=== PATIENT | female | born 1975 | race Caucasian/White ===

== ENCOUNTER 2016-10-03 11:56 | Emergency (ER) | payer MEDICAID ==
[~2016-10-03] VITALS: Ht 160 cm; Wt 101.0 kg
[~2016-10-03 11:56] MED LIST: CYCL-36 PO; GABA300C3 PO; METH10TA PO
[2016-10-03 11:59] VITALS: BP 144/82; PULSE 104; RESP 20; TEMP 97.9; O2SAT 99
--- NOTE | 2016-10-03 12:02 | PD ---
Physical Exam Time Seen by Provider: 12:00 Narrative Pt presents to the ED stating she detoxing from methadone 180mg daily.; last took it 3 days ago. Pt attempted mona jannet but was directed her due to dosage and being out of their scope. Pt has no other medical history. Pt is with nausea, vomiting, diarrhea; heart racing, decreased appetite. Data Data Last Documented VS Vital Signs Date Time Temp Pulse Resp B/P Pulse Ox O2 Delivery O2 Flow Rate FiO2 10/03/16 18:30 70 15 142/79 99 Room Air 10/03/16 11:59 97.9 Orders Complete Blood Count With Diff (10/03/16 12:02) Comprehensive Metabolic Panel (10/03/16 12:02) Thyroid Stimulating Hormone (10/03/16 12:02) Urinalysis - C+S If Indicated (10/03/16 12:02) Drug Screen, Random Urine (10/03/16 12:02) Electrocardiogram (10/03/16 12:02) Alcohol (Ethanol) (10/03/16 12:02) Lorazepam Inj (Ativan Inj) (10/03/16 16:15) Psych Screen (10/03/16 18:58) Labs Laboratory Tests Test 10/03/16 10/03/16 12:25 17:00 White Blood Count 7.3 TH/MM3 Red Blood Count 4.51 MIL/MM3 Hemoglobin 12.0 GM/DL Hematocrit 36.7 % Mean Corpuscular Volume 81.4 FL Mean Corpuscular Hemoglobin 26.6 PG Mean Corpuscular Hemoglobin 32.7 % Concent Red Cell Distribution Width 15.5 % Platelet Count 238 TH/MM3 Mean Platelet Volume 8.1 FL Neutrophils (%) (Auto) 76.3 % Lymphocytes (%) (Auto) 17.0 % Monocytes (%) (Auto) 4.3 % Eosinophils (%) (Auto) 2.1 % Basophils (%) (Auto) 0.3 % Neutrophils # (Auto) 5.5 TH/MM3 Lymphocytes # (Auto) 1.2 TH/MM3 Monocytes # (Auto) 0.3 TH/MM3 Eosinophils # (Auto) 0.2 TH/MM3 Basophils # (Auto) 0.0 TH/MM3 CBC Comment DIFF FINAL Differential Comment Sodium Level 136 MEQ/L Potassium Level 3.8 MEQ/L Chloride Level 102 MEQ/L Carbon Dioxide Level 27.4 MEQ/L Anion Gap 7 MEQ/L Blood Urea Nitrogen 8 MG/DL Creatinine 0.85 MG/DL Estimat Glomerular Filtration 73 ML/MIN Rate Random Glucose 101 MG/DL Calcium Level 8.8 MG/DL Total Bilirubin 0.2 MG/DL Aspartate Amino Transf 9 U/L (AST/SGOT) Alanine Aminotransferase 19 U/L (ALT/SGPT) Alkaline Phosphatase 87 U/L Total Protein 7.9 GM/DL Albumin 3.4 GM/DL Thyroid Stimulating Hormone 1.050 uIU/ML 3rd Gen Ethyl Alcohol Level LESS THAN 3 MG/DL Urine Color YELLOW Urine Turbidity CLEAR Urine pH 6.5 Urine Specific [place] 1.013 Urine Protein NEG mg/dL Urine Glucose (UA) NEG mg/dL Urine Ketones NEG mg/dL Urine Occult Blood NEG Urine Nitrite NEG Urine Bilirubin NEG Urine Urobilinogen LESS THAN 2.0 MG/DL Urine Leukocyte Esterase NEG Urine RBC LESS THAN 1 /hpf Urine Squamous Epithelial 1 /hpf Cells Urine Mucus FEW /lpf Microscopic Urinalysis Comment CULT NOT INDICATED Urine Opiates Screen NEG Urine Barbiturates Screen NEG Urine Amphetamines Screen NEG Urine Benzodiazepines Screen POS Urine Cocaine Screen NEG Urine Cannabinoids Screen NEG MDM Medical Record Reviewed: Yes Supervised Visit with JETT: No Narrative Course Work up initiated in triage. Condition: Stable Diane Grimaldo Oct 03, 2016 12:02
[2016-10-03 13:29] LABS: AUTOMATED NEUTROPHIL # 5.5 TH/MM3 (1.8-7.7); BASOPHIL % 0.3 % (0.0-2.0); EOSINOPHIL # 0.2 TH/MM3 (0-0.4); EOSINOPHIL % 2.1 % (0.0-4.0); HEMATOCRIT 36.7 % (35.0-46.0); HEMO FLAGS DIFF FINAL; LYMPHOCYTE # 1.2 TH/MM3 (1.0-4.8); MEAN CELL VOLUME 81.4 FL (80.0-100.0); MEAN CORPUSCULAR HEMOGLOBIN 26.6 PG (27.0-34.0); MEAN CORPUSCULAR HGB CONC 32.7 % (32.0-36.0); MONO % 4.3 % (0.0-8.0); NEUT % 76.3 % (16.0-70.0); PLATELET COUNT 238 TH/MM3 (150-450); RED BLOOD COUNT 4.51 MIL/MM3 (4.00-5.30); RED CELL DISTRIBUTION WIDTH 15.5 % (11.6-17.2); WHITE BLOOD COUNT 7.3 TH/MM3 (4.0-11.0)
[2016-10-03 13:42] LABS: ALT (GPT) 19 U/L (10-53); ANION GAP 7 MEQ/L (5-15); AST (GOT) 9 U/L (15-37); BICARBONATE 27.4 MEQ/L (21.0-32.0); BLOOD UREA NITROGEN 8 MG/DL (7-18); CHLORIDE 102 MEQ/L (98-107); GLOMERULAR FILTRATION RATE 73 ML/MIN (>89); POTASSIUM 3.8 MEQ/L (3.5-5.1); SODIUM (NA) 136 MEQ/L (136-145)
[2016-10-03 13:52] LABS: ALKALINE PHOSPHATASE 87 U/L (45-117); TOTAL BILIRUBIN ADULT 0.2 MG/DL (0.2-1.0)
--- NOTE | 2016-10-03 16:11 | PD ---
HPI Chief Complaint: Medical Clearance Time Seen by Provider: 15:48 Travel History International Travel<30 days: No Contact w/Intl Traveler<30days: No Traveled to known affect area: No History of Present Illness HPI 41-year-old female complains of shortness of breath, body ache, poor appetite, irritable and diarrhea. Patient has been taking methadone for the past 5 years. Patient tried to detox from methadone and stopped taking it for the past 3 days. Patient states that she is going through withdrawal and having suicidal ideation. Patient denies any headache. Patient denies any chest pain. Patient denies abdominal pain. She denies any fever chills. Patient denies any dysuria or frequency. PFSH Past Medical History Diminished Hearing: No Immunizations Current: Yes ?: Not LMP: "A WHILE" : 4 Para: 4 Tubal Ligation: Yes Past Surgical History Abdominal Surgery: Yes (C SEC X 2) Section: Yes Gynecologic Surgery: Yes (2 C-SECTIONS) Oral Surgery: Yes (shands last week oral surgery ) Social History Alcohol Use: No Tobacco Use: Yes (PACK A DAY) Substance Use: No Allergies-Medications (Allergen,Severity, Reaction): Coded Allergies: No Known Allergies (Verified , 10/03/16) Reported Meds & Prescriptions Reported Meds & Active Scripts Active Reported Valium (Diazepam) 2 Mg Tab 2 Mg PO BID Ambien (Zolpidem Tartrate) 10 Mg Tab 10 Mg PO HS Flexeril (Cyclobenzaprine HCl) 10 Mg Tab 10 Mg PO BID Phenergan (Promethazine HCl) 25 Mg Tab 25 Mg PO DIRECTED PRN Neurontin (Gabapentin) 800 Mg Tab 800 Mg PO TID Review of Systems General / Constitutional: No: Fever Eyes: No: Visual changes HENT: No: Headaches Cardiovascular: No: Chest Pain or Discomfort Respiratory: No: Shortness of Breath Gastrointestinal: No: Abdominal Pain Genitourinary: No: Dysuria Musculoskeletal: No: Pain Skin: No Rash Neurologic: No: Weakness Psychiatric: No: Depression Endocrine: No: Polydipsia Hematologic/Lymphatic: No: Easy Bruising Physical Exam Narrative GENERAL: Well-nourished, well-developed patient. SKIN: Warm and dry. HEAD: Normocephalic. EYES: No scleral icterus. No injection or drainage. NECK: Supple, trachea midline. No JVD or lymphadenopathy. CARDIOVASCULAR: Regular rate and rhythm without murmurs, gallops, or rubs. RESPIRATORY: Breath sounds equal bilaterally. No accessory muscle use. GASTROINTESTINAL: Abdomen soft, non-tender, nondistended. MUSCULOSKELETAL: No cyanosis, or edema. BACK: Nontender without obvious deformity. No CVA tenderness. Neurologic exam normal. Data Data Last Documented VS Vital Signs Date Time Temp Pulse Resp B/P Pulse Ox O2 Delivery O2 Flow Rate FiO2 10/03/16 16:30 81 20 153/74 100 Room Air 10/03/16 11:59 97.9 Orders Complete Blood Count With Diff (10/03/16 12:02) Comprehensive Metabolic Panel (10/03/16 12:02) Thyroid Stimulating Hormone (10/03/16 12:02) Urinalysis - C+S If Indicated (10/03/16 12:02) Drug Screen, Random Urine (10/03/16 12:02) Electrocardiogram (10/03/16 12:02) Alcohol (Ethanol) (10/03/16 12:02) Lorazepam Inj (Ativan Inj) (10/03/16 16:15) Labs Laboratory Tests Test 10/03/16 10/03/16 12:25 17:00 White Blood Count 7.3 TH/MM3 Red Blood Count 4.51 MIL/MM3 Hemoglobin 12.0 GM/DL Hematocrit 36.7 % Mean Corpuscular Volume 81.4 FL Mean Corpuscular Hemoglobin 26.6 PG Mean Corpuscular Hemoglobin 32.7 % Concent Red Cell Distribution Width 15.5 % Platelet Count 238 TH/MM3 Mean Platelet Volume 8.1 FL Neutrophils (%) (Auto) 76.3 % Lymphocytes (%) (Auto) 17.0 % Monocytes (%) (Auto) 4.3 % Eosinophils (%) (Auto) 2.1 % Basophils (%) (Auto) 0.3 % Neutrophils # (Auto) 5.5 TH/MM3 Lymphocytes # (Auto) 1.2 TH/MM3 Monocytes # (Auto) 0.3 TH/MM3 Eosinophils # (Auto) 0.2 TH/MM3 Basophils # (Auto) 0.0 TH/MM3 CBC Comment DIFF FINAL Differential Comment Sodium Level 136 MEQ/L Potassium Level 3.8 MEQ/L Chloride Level 102 MEQ/L Carbon Dioxide Level 27.4 MEQ/L Anion Gap 7 MEQ/L Blood Urea Nitrogen 8 MG/DL Creatinine 0.85 MG/DL Estimat Glomerular Filtration 73 ML/MIN Rate Random Glucose 101 MG/DL Calcium Level 8.8 MG/DL Total Bilirubin 0.2 MG/DL Aspartate Amino Transf 9 U/L (AST/SGOT) Alanine Aminotransferase 19 U/L (ALT/SGPT) Alkaline Phosphatase 87 U/L Total Protein 7.9 GM/DL Albumin 3.4 GM/DL Thyroid Stimulating Hormone 1.050 uIU/ML 3rd Gen Ethyl Alcohol Level LESS THAN 3 MG/DL Urine Color YELLOW Urine Turbidity CLEAR Urine pH 6.5 Urine Specific [place] 1.013 Urine Protein NEG mg/dL Urine Glucose (UA) NEG mg/dL Urine Ketones NEG mg/dL Urine Occult Blood NEG Urine Nitrite NEG Urine Bilirubin NEG Urine Urobilinogen LESS THAN 2.0 MG/DL Urine Leukocyte Esterase NEG Urine RBC LESS THAN 1 /hpf Urine Squamous Epithelial 1 /hpf Cells Urine Mucus FEW /lpf Microscopic Urinalysis Comment CULT NOT INDICATED Urine Opiates Screen NEG Urine Barbiturates Screen NEG Urine Amphetamines Screen NEG Urine Benzodiazepines Screen POS Urine Cocaine Screen NEG Urine Cannabinoids Screen NEG MDM Medical Decision Making Medical Screen Exam Complete: Yes Emergency Medical Condition: Yes Interpretation(s) 1758 PM. CBC within normal limit. CMP within normal limit. Alcohol negative. UA is negative. Urine drug screen positive for benzodiazepine. Differential Diagnosis Differential diagnosis including opioid withdrawal, suicidal ideation. Narrative Course 41-year-old female with shortness of breath, body ache, poor appetite, diarrhea , irritable. History of methadone abuse. Patient stopped methadone 3 days ago. Patient go through withdrawal. Ativan 1 mg IM. Patient also expressing suicidal ideation. 1818 p.m. Patient is medically cleared for psychiatric evaluation and disposition. Diagnosis Primary Impression: Opiate withdrawal Condition: Stable Reji Matias MD Oct 03, 2016 16:11
[2016-10-03] MEDS ORDERED: LORazepam 2 MG/ML VIAL IM ONE ×2 (16:15→21:00)
[2016-10-03 16:30] VITALS: BP 153/74; PULSE 81; RESP 20; O2SAT 100
[2016-10-03] MEDS ORDERED: PROM25TA5 PO (16:37)
[2016-10-03] MEDS ORDERED: DIAZ2 PO (16:37)
[2016-10-03] MEDS ORDERED: NEUR800T PO (16:37)
[2016-10-03] MEDS ORDERED: CYCL1TAB29 PO (16:37)
[2016-10-03] MEDS ORDERED: AMBI10TA PO (16:37)
[2016-10-03 17:42] LABS: AMPHETAMINE, URINE NEG (NEG); BARBITURATES, URINE NEG (NEG); COCAINE, URINE NEG (NEG)
[2016-10-03 17:43] LABS: BLOOD, URINE NEG (NEG); COMMENT (UR) CULT NOT INDICATED; CULTURE IF INDICATED CULT NOT INDICATED; GLUCOSE,URINE NEG (NEG); KETONE, URINE NEG (NEG); MUCUS URINE FEW /lpf (OCC); NITRITE,URINE NEG (NEG); PH, URINE 6.5 (5.0-8.5); SQUAMOUS EPITHELIAL CELL URINE 1 /hpf (0-5); URINE COLOR YELLOW (YELLW/STRAW)
[2016-10-03 18:30] VITALS: BP 142/79; PULSE 70; RESP 15; O2SAT 99
[2016-10-04 01:36] VITALS: BP 141/75; PULSE 80; RESP 14; O2SAT 100
--- NOTE | 2016-10-04 21:20 | EKG ---
Date Performed: 10/03/2016 Time Performed: 13:14:02 PTAGE: 41 years EKG: Sinus rhythm NORMAL ECG PREVIOUS TRACING : 05/31/2003 14.42 DOCTOR: Micheal Toribio Interpretating Date/Time 10/04/2016 21:10:25
== END 2016-10-04 02:09 | disposition home or self-care (01) ==
LOC: NEPA 11:56
DX: F11.23 Opioid dependence with withdrawal (principal); R45.851 Suicidal ideations; F17.210 Nicotine dependence, cigarettes, uncomplicated
CPT/HCPCS: 80053; 80307; 80320; 81001; 84443; 85025; 93005; 96372; 99284; J2060

== ENCOUNTER 2016-10-04 12:16 | Emergency (ER) | payer MEDICAID ==
[~2016-10-04] VITALS: Ht 157.5 cm; Wt 100.0 kg
[~2016-10-04 12:16] MED LIST changes: +AMBI10TA PO; -CYCL-36 PO; +CYCL1TAB29 PO; +DIAZ2 PO; -GABA300C3 PO; -METH10TA PO; +NEUR800T PO; +PROM25TA5 PO
[2016-10-04 12:30] VITALS: BP 160/90; PULSE 93; RESP 16; TEMP 98.7; O2SAT 100
--- NOTE | 2016-10-04 13:08 | PD ---
HPI Chief Complaint: Psychiatric Symptoms Time Seen by Provider: 12:30 Travel History International Travel<30 days: No Contact w/Intl Traveler<30days: No Traveled to known affect area: No History of Present Illness HPI 41-year-old female presents to the emergency room as a Lepe act for evaluation of suicidal ideation. Patient states every day her ideations worsen due to opiate withdrawal. She has been on methadone for 5 years. Current dose is 180 mg. She ran out about 3 days ago. Patient ran out because her therapist retired. She reports associated chills, nausea, vomiting, diarrhea, decreased appetite, lethargy, and insomnia. Patient states she has thought about a plan multiple times but does not specify what the plan is. Denies homicidal ideation , delusions, or hallucinations. She also takes flexeril, Valium, Ambien, and gabapentin but has not taken them recently because she doesn't feel well. Of note, patient came to the emergency room voluntarily yesterday for opiate withdrawal and was medically cleared but discharged before seen psych. [facility] Past Medical History Anxiety: Yes Depression: Yes Diminished Hearing: Yes GERD: Yes Immunizations Current: Yes Migraines: Yes Pneumonia: Yes Menopausal: Yes : 4 Para: 4 Tubal Ligation: Yes Past Surgical History Abdominal Surgery: Yes (C SEC X 2) Section: Yes (X 2) Gynecologic Surgery: Yes (2 C-SECTIONS) Oral Surgery: Yes Tonsillectomy: Yes Social History Alcohol Use: No Tobacco Use: Yes Substance Use: No Allergies-Medications (Allergen,Severity, Reaction): Coded Allergies: No Known Allergies (Verified , 10/03/16) Reported Meds & Prescriptions Reported Meds & Active Scripts Active Reported Valium (Diazepam) 2 Mg Tab 2 Mg PO BID Ambien (Zolpidem Tartrate) 10 Mg Tab 10 Mg PO HS Flexeril (Cyclobenzaprine HCl) 10 Mg Tab 10 Mg PO BID Phenergan (Promethazine HCl) 25 Mg Tab 25 Mg PO DIRECTED PRN Neurontin (Gabapentin) 800 Mg Tab 800 Mg PO TID Review of Systems Except as stated in HPI: all other systems reviewed are Neg Physical Exam Narrative GENERAL: Well-nourished, well-developed female in no acute distress. Afebrile. Ambulatory. SKIN: Warm and dry. HEAD: Normocephalic. EYES: No scleral icterus. No injection or drainage. NECK: Supple, trachea midline. No JVD or lymphadenopathy. CARDIOVASCULAR: Regular rate and rhythm without murmurs, gallops, or rubs. RESPIRATORY: Breath sounds equal bilaterally. No accessory muscle use. No crackles, rales, wheezes, or rhonchi. PSYCHIATRIC: Tearful. Depressed mood. No delusional thought processes. No hallucinations. Data Data Last Documented VS Vital Signs Date Time Temp Pulse Resp B/P Pulse Ox O2 Delivery O2 Flow Rate FiO2 10/04/16 12:30 98.7 93 16 160/90 100 Orders Psych Screen (10/04/16 12:37) [facility] Medical Decision Making Medical Screen Exam Complete: Yes Emergency Medical Condition: Yes Medical Record Reviewed: Yes Differential Diagnosis Suicidal ideation versus opiate withdrawal versus mood disorder Narrative Course 41-year-old female presents to the emergency room under [place] act initiated by [employer] for evaluation of suicidal ideation. Sister called 911 after patient made suicidal statements. Patient states she cannot take withdrawing from methadone anymore. She came voluntarily yesterday but was discharged before seeing psych. CBC, CMP, and TSH obtained yesterday were unremarkable. UA negative. Urine drug screen was positive for benzodiazepines. Vital signs stable. Patient resting comfortably in the chair. She is tearful but cooperative. In no obvious distress. She is medically cleared for psychiatric evaluation and disposition at this time. Diagnosis Primary Impression: Medical clearance for psychiatric admission Condition: Stable Chelsi Menon Oct 04, 2016 13:08
[2016-10-04 13:26] VITALS: BP 118/73; PULSE 94; RESP 18; TEMP 98; O2SAT 98
--- NOTE | 2016-10-04 15:54 | PD ---
History of Present Illness Chief Complaint: Psychiatric Symptoms Time Seen by Provider: 15:00 Travel History International Travel<30 Days: No Contact w/Intl Traveler<30days: No Known affected area: No Legal Status Legal Status: Lepe Act Lepe Act Signed By: Valeria Mckinney Lepe Act Comment: BA signed by: Valeria ARAGON, Manuel Abdalla #[id number], Case # [id number] History of Present Illness: History of Present Illness HPI 41-year-old female with history of anxiety and chronic pain on methadone who presents to the emergency room as a Lepe act initiated by BERTHA. Patient returns to ED after having been seeing yesterday for opioid withdrawal. She reports that she has been off her methadone x 3 - 4 days as she has no money to pay for this treatment. As per the BA the patient's sister reported that the patient made several suicidal statements by saying several times that she wished she was due to going thru methadone withdrawal. She reports taking methadone for pain management but that her mother has recently refused to continue to pay for her treatment and she could not afford it. She also states she stopped taking medication prescribed by Dr. De Souza as she felt it didn't work without the methadone. S Her psychiatric medications reported are Ambien, Valium, gabapentin and Adderall. Patient is seen in J pod. Asleep. Awakens easily. Speech is clear and logical. She does not report or exhibit symptoms associated with methadone withdrawal at this time. She does complain of muscle aches. Patient is vague regarding current social/ living situation. She reported the passive wishes in context of opiate withdrawal symptoms. She has no plan and has no previous suicide attempts. Upon further discussion it is determined she is here in the hospital seeking detoxification services. She was turned down from [facility] due to high dose of methadone dosage.There is no psychosis and no daniel. This patient is looking for a detox bed at this time as she informed me she called [facility] this morning and went to [facility] but was told to come here. . TC to [facility] [place] spoke with Akin. There is a detox bed available for this patient if she can get there today. PFSH Past Medical History Anxiety: Yes Depression: Yes Diminished Hearing: Yes GERD: Yes Immunizations Current: Yes Migraines: Yes Pneumonia: Yes Tetanus Vaccination: Unknown ?: Not Menopausal: Yes : 4 Para: 4 Tubal Ligation: Yes Past Surgical History Abdominal Surgery: Yes (C SEC X 2) Section: Yes (X 2) Gynecologic Surgery: Yes (2 C-SECTIONS) Oral Surgery: Yes Tonsillectomy: Yes Psychiatric History Psychiatric History Hx Psychiatric Treatment: neagtive History of Inpatient Treatment: No Guns or firearms in home: No Social History female. Has 4 children. unemployed. Lives with her mother. Hx Alcohol Use: No Hx Tobacco Use: Yes Hx Substance Use: Yes Substance Use Type: Synth Opiates-Pain Pills Hx of Substance Use Treatment: No Allergies-Medications (Allergen,Severity, Reaction): Coded Allergies: No Known Allergies (Verified , 10/03/16) Reported Meds & Prescriptions Reported Meds & Active Scripts Active Reported Valium (Diazepam) 2 Mg Tab 2 Mg PO BID Ambien (Zolpidem Tartrate) 10 Mg Tab 10 Mg PO HS Flexeril (Cyclobenzaprine HCl) 10 Mg Tab 10 Mg PO BID Phenergan (Promethazine HCl) 25 Mg Tab 25 Mg PO DIRECTED PRN Neurontin (Gabapentin) 800 Mg Tab 800 Mg PO TID Review of Systems Constitutional: COMPLAINS OF: Fatigue Endocrine: DENIES: Abnorml menstrual pattern, Heat/cold intolerance, Polydipsia , Polyuria, Polyphagia Eyes: DENIES: Blurred vision, Diplopia, Eye inflammation, Eye pain, Vision loss , Photosensitivity, Double Vision Ears, nose, mouth, throat: DENIES: Tinnitus, Hearing loss, Vertigo, Nasal discharge, Oral lesions, Throat pain, Hoarseness, Ear Pain, Running Nose, Epistaxis, Sinus Pain, Toothache, Odynophagia Respiratory: DENIES: Apneas, Cough, Snoring, Wheezing, Hemoptysis, Sputum production, Shortness of breath Cardiovascular: DENIES: Chest pain, Palpitations, Syncope, Dyspnea on Exertion , PND, Lower Extremity Edema, Orthopnea, Claudication Gastrointestinal: DENIES: Abdominal pain, Black stools, Bloody stools, Constipation, Diarrhea, Nausea, Vomiting, Difficulty Swallowing, Anorexia Genitourinary: DENIES: Abnormal vaginal bleeding, Dysmenorrhea, Dyspareunia, Sexual dysfunction, Urinary frequency, Urinary incontinence, Urgency, Hematuria , Dysuria, Nocturia, Vaginal discharge Musculoskeletal: COMPLAINS OF: Joint pain, Muscle aches, Back pain Integumentary: DENIES: Abnormal pigmentation, Pruritus, Rash, Nail changes, Breast masses, Breast skin changes, Nipple discharge Hematologic/lymphatic: DENIES: Bruising, Lymphadenopathy Immunologic/allergic: DENIES: Eczema, Urticaria Neurologic: DENIES: Abnormal gait, Headache, Localized weakness, Paresthesias, Seizures, Speech Problems, Tremor, Poor Balance Psychiatric: COMPLAINS OF: Anxiety Exam Alert: Yes [place]: Person (ox4) Mood: Calm Affect: Euthymic Speech: Clear, Logical Eye Contact: Normal Memory Intact: Comment (no impairment) Hallucinations: Other (negative) Suicidal: Ideation (negative) Homicidal: Ideation (negative) Insight/Judgement poor. not impaired MDM Medical Decision Making Medical Record Reviewed: Yes Assessment/Plan 41 year old female who is under a BA after she made statements that she rather be than to go thru withdrawal. She has no prior suicide attempt, no hx of inpatient treatment. She is seeking a detox facility t this time. I have contacted The center and there is a bed available. patient has contacted her sister who will transport her there. At this time she does not meet BA criteria. She will be discharged and her sister will transport her to the [facility] in [place].. Orders Psych Screen (10/04/16 12:37) Results Vital Signs Date Time Temp Pulse Resp B/P Pulse Ox O2 Delivery O2 Flow Rate FiO2 10/04/16 13:26 98.0 94 18 118/73 98 10/04/16 12:30 98.7 93 16 160/90 100 Diagnosis Primary Impression: Generalized anxiety disorder Additional Impression: Opiate withdrawal Psychiatrically Cleared: Yes Med/ Other Pt Specific Info: No Change to Meds Disposition: 01 DISCHARGE HOME Condition: Stable Problem Qualifiers Gardenia Orozco Oct 04, 2016 15:54
[2016-10-04 16:15] VITALS: BP 118/73; PULSE 94; RESP 18; O2SAT 98
== END 2016-10-04 18:20 | disposition home or self-care (01) ==
LOC: NEPJ 12:16
DX: F41.1 Generalized anxiety disorder (principal); F11.23 Opioid dependence with withdrawal; F41.8 Other specified anxiety disorders; Z72.0 Tobacco use
CPT/HCPCS: 99282

== ENCOUNTER 2017-02-10 21:22 | Emergency (ER) | payer MEDICAID ==
[~2017-02-10] VITALS: Ht 160 cm; Wt 119.4 kg
[2017-02-10 21:31] VITALS: BP 133/91; PULSE 98; RESP 18; TEMP 98.6; O2SAT 98
[2017-02-10] MEDS ORDERED: METH40TA PO (21:53)
[2017-02-10] MEDS ORDERED: ADDE20 PO (21:53)
--- NOTE | 2017-02-10 22:06 | PD ---
HPI Chief Complaint: Skin Problem Time Seen by Provider: 12:50 Travel History International Travel<30 days: No Contact w/Intl Traveler<30days: No Traveled to known affect area: No History of Present Illness HPI 41-year-old female presents the emergency department for evaluation of left hand redness and swelling. She reports 2 day history of left hand mild pain and swelling. She reports this morning the hand became red prompting her to come in for evaluation. She denies injury or trauma to the hand. There is no wound or deformity. Patient has a past medical history of opiate dependence. She denies IV drug use and hand. There is no visible evidence of IV drug use. She denies fever, chills, nausea, vomiting. PFSH Past Medical History Narrative Medical Anxiety, depression, opiate dependence on methadone, insomnia Anxiety: Yes Depression: Yes Diminished Hearing: Yes GERD: Yes Immunizations Current: Yes Migraines: Yes Pneumonia: Yes Tetanus Vaccination: > 5 Years Influenza Vaccination: Yes ?: Not LMP: NOW Menopausal: Yes : 4 Para: 4 Tubal Ligation: Yes Past Surgical History Abdominal Surgery: Yes (C SEC X 2) Section: Yes (X 2) Gynecologic Surgery: Yes (2 C-SECTIONS) Oral Surgery: Yes Tonsillectomy: Yes Social History Alcohol Use: No Tobacco Use: Yes (1/2 PPD) Substance Use: Yes (MEDICATIONS ) Allergies-Medications (Allergen,Severity, Reaction): Coded Allergies: No Known Allergies (Verified , 02/10/17) Reported Meds & Prescriptions Reported Meds & Active Scripts Active Clindamycin (Clindamycin HCl) 300 Mg Cap 300 Mg PO TID Reported Methadone (Methadone HCl) 40 Mg Tab 150 Mg PO DAILY Adderall (Amphetamine-Dextroamphetamine) 20 Mg Tab 20 Mg PO TID Avoid late evening doses. Space doses at least 4 to 6 hours if more than once/day dosing. Valium (Diazepam) 2 Mg Tab 2 Mg PO BID Ambien (Zolpidem Tartrate) 10 Mg Tab 10 Mg PO HS Neurontin (Gabapentin) 800 Mg Tab 800 Mg PO TID Review of Systems Except as stated in HPI: all other systems reviewed are Neg Physical Exam Narrative GENERAL: Alert well-appearing female. SKIN: Focused skin assessment warm/dry. Erythema to the dorsal aspect of left hand with mild swelling extending to the wrist. No areas of fluctuance. No wounds. No evidence of IV drug use. HEAD: Atraumatic. Normocephalic. EYES: Pupils equal and round. No scleral icterus. No injection or drainage. ENT: No nasal bleeding or discharge. Mucous membranes pink and moist. NECK: Trachea midline. No JVD. CARDIOVASCULAR: Regular rate and rhythm. No murmur appreciated. RESPIRATORY: No accessory muscle use. Clear to auscultation. Breath sounds equal bilaterally. GASTROINTESTINAL: Abdomen soft, non-tender, nondistended. Hepatic and splenic margins not palpable. MUSCULOSKELETAL: No obvious deformities. No clubbing. No cyanosis. The left hand mild swelling and erythema to the dorsal aspect. No lymphangitis Full range of motion of the digits of the left hand. No evidence of tenosynovitis. 2+ distal pulses in the upper extremities. Left upper extremity neurovascular intact. NEUROLOGICAL: Awake and alert. No obvious cranial nerve deficits. Motor grossly within normal limits. Normal speech. PSYCHIATRIC: Appropriate mood and affect; insight and judgment normal. Data Data Last Documented VS Vital Signs Date Time Temp Pulse Resp B/P Pulse Ox O2 Delivery O2 Flow Rate FiO2 02/10/17 21:31 98.6 98 18 133/91 98 MDM Medical Decision Making Medical Screen Exam Complete: Yes Emergency Medical Condition: Yes Medical Record Reviewed: Yes Differential Diagnosis Cellulitis, abscess, unspecified rash, hand pain Narrative Course 41-year-old female presents to the emergency room for evaluation of left hand pain and swelling. She denies trauma to the extremity. She reports it was a possible insect bite but the area became increasingly more swollen and red over the last 24 hours. The area does not appear to be an insect bite. She denies itching, fever, chills. Patient does have a history of opiate dependence but denies IV drug use. There is no evidence of IV drug use. The dorsal aspect of the hand is erythematous spreading up to the wrist there is no lymphangitis, no induration, no fluctuance. Patient will be treated for early cellulitis with clindamycin and instructed to follow-up with her primary care provider. She is in agreement to this plan Diagnosis Primary Impression: Cellulitis Qualified Code: L03.114 - Cellulitis of left upper extremity Referrals: Primary Care Physician Scripts Clindamycin 300 Mg [id number] Mg PO TID #21 CAP Ref 0 Prov:Malika Quijano 02/10/17 Disposition: 01 DISCHARGE HOME Condition: Stable Malika Quijano February 10, 2017 22:06
[2017-02-10] MEDS ORDERED: CLIN1CAP6 PO (22:16)
[2017-02-10] MEDS ORDERED: CLINDAMYCIN 150 MG CAP PO SCH (22:30)
== END 2017-02-10 22:30 | disposition home or self-care (01) ==
LOC: PHEFT 21:22
DX: L03.114 Cellulitis of left upper limb (principal); F17.210 Nicotine dependence, cigarettes, uncomplicated; F11.20 Opioid dependence, uncomplicated; F41.8 Other specified anxiety disorders
CPT/HCPCS: 99283

== ENCOUNTER 2017-12-12 18:10 | Emergency (ER) | payer MEDICAID ==
[~2017-12-12] VITALS: Ht 160 cm; Wt 111.6 kg
[~2017-12-12 18:10] MED LIST changes: +ADDE20 PO; +CLIN300C5 PO; -CYCL1TAB29 PO; +METH40TA PO; -PROM25TA5 PO
[2017-12-12 18:12] VITALS: BP 147/89; PULSE 62; RESP 16; TEMP 98.6; O2SAT 98
--- NOTE | 2017-12-12 19:13 | RADRPT ---
EXAM DATE/TIME: 12/12/2017 18:47 [place] COMPARISON: No previous studies available for comparison. INDICATIONS : Trauma. Hit top of head 2 weeks ago. Increasing head pain. RADIATION DOSE: 60.57 CTDIvol (mGy) MEDICAL HISTORY : Gastroesophageal reflux disease. Migraines. SURGICAL HISTORY : Tubal ligation. section. ENCOUNTER: Initial ACUITY: 2 weeks PAIN SCALE: 7/10 LOCATION: cranial TECHNIQUE: Multiple contiguous axial images were obtained of the head. Using automated exposure control and adj ustment of the mA and/or kV according to patient size, radiation dose was kept as low as reasonably a chievable to obtain optimal diagnostic quality images. DICOM format image data is available electro nically for review and comparison. FINDINGS: CEREBRUM: The ventricles are normal for age. No evidence of midline shift, mass lesion, hemorrhage or acute in farction. No extra-axial fluid collections are seen. POSTERIOR FOSSA: The cerebellum and brainstem are intact. The 4th ventricle is midline. The cerebellopontine angle i s unremarkable. EXTRACRANIAL: The visualized portion of the orbits is intact. SKULL: The calvaria is intact. No evidence of skull fracture. CONCLUSION: No acute disease. Sekou Mcadams MD on December 12, 2017 at 19:11 Board Certified Radiologist. This report was verified electronically.
--- NOTE | 2017-12-12 19:32 | PD ---
HPI Chief Complaint: Head Injury Time Seen by Provider: 18:32 Travel History International Travel<30 days: No Contact w/Intl Traveler<30days: No Traveled to known affect area: No History of Present Illness HPI This is a 42-year-old female here for evaluation of generalized mild headache after closed head injury one week ago. She reports she had a trip and fall striking her head on a coffee table 7 days ago. She denies loss of consciousness. She is not anticoagulated. She has had a generalized headache since the event. Tetanus severity is mild. No aggravating or alleviating factors. No nausea or vomiting. No neck pain. PFSH Past Medical History Arthritis: Yes Anxiety: Yes Depression: Yes Diminished Hearing: Yes GERD: Yes Medical other: Yes (CHRONIC PAIN DUE TO PSORIATIC ARTHRIAITS) Immunizations Current: Yes Migraines: Yes Pneumonia: Yes Tetanus Vaccination: < 5 Years Influenza Vaccination: No ?: Unknown Menopausal: Yes : 4 Para: 4 Tubal Ligation: Yes Past Surgical History Abdominal Surgery: Yes (C SEC X 2) Section: Yes (X 2) Gynecologic Surgery: Yes (2 C-SECTIONS) Oral Surgery: Yes Tonsillectomy: Yes Social History Alcohol Use: No Tobacco Use: Yes (1/2 PPD) Substance Use: Yes (MEDICATIONS ) Allergies-Medications (Allergen,Severity, Reaction): Coded Allergies: No Known Allergies (Verified Adverse Reaction, Unknown, 12/12/17) Reported Meds & Prescriptions Reported Meds & Active Scripts Active Reported Methadone (Methadone HCl) 40 Mg Tab 150 Mg PO DAILY Adderall (Amphetamine-Dextroamphetamine) 20 Mg Tab 20 Mg PO TID Avoid late evening doses. Space doses at least 4 to 6 hours if more than once/day dosing. Valium (Diazepam) 2 Mg Tab 2 Mg PO BID Ambien (Zolpidem Tartrate) 10 Mg Tab 10 Mg PO HS Review of Systems Except as stated in HPI: all other systems reviewed are Neg General / Constitutional: No: Fever Eyes: No: Visual changes HENT: Positive: Headaches Cardiovascular: No: Chest Pain or Discomfort Respiratory: No: Shortness of Breath Gastrointestinal: No: Abdominal Pain Genitourinary: No: Dysuria Physical Exam Narrative GENERAL: Alert well-appearing 42-year-old male SKIN: Warm and dry. HEAD: Atraumatic. Normocephalic. EYES: Pupils equal and round. EOMs intact. No injection or drainage. ENT: No nasal bleeding or discharge. Mucous membranes pink and moist. NECK: Trachea midline. No JVD. No cervical midline tenderness CARDIOVASCULAR: Regular rate and rhythm. RESPIRATORY: No accessory muscle use. Clear to auscultation. Breath sounds equal bilaterally. GASTROINTESTINAL: Abdomen soft, non-tender, nondistended. MUSCULOSKELETAL: Extremities without clubbing, cyanosis, or edema. No obvious deformities. NEUROLOGICAL: Awake and alert. No obvious cranial nerve deficits. Motor grossly within normal limits. Five out of 5 muscle strength in the arms and legs. Normal speech. PSYCHIATRIC: Appropriate mood and affect; insight and judgment normal. Data Data Last Documented VS Vital Signs Date Time Temp Pulse Resp B/P (MAP) Pulse Ox O2 Delivery O2 Flow Rate FiO2 12/12/17 18:12 98.6 62 16 147/89 (108) [address] Brain W/O Iv Contrast(Rout) (12/12/17 ) [facility] Medical Decision Making Medical Screen Exam Complete: Yes Emergency Medical Condition: Yes Differential Diagnosis Closed head injury, ICH, postconcussive type symptoms Narrative Course This is a 42-year-old female with generalized headache after closed head injury last week. She has a normal neurologic exam. She is well-appearing. The scan is negative for ICH. Findings were discussed with patient. She is stable and ready for discharge Diagnosis Primary Impression: Head injury Qualified Codes: S09.90XA - Unspecified injury of head, initial encounter Referrals: Primary Care Physician Additional Instructions: Tylenol and ibuprofen for pain. Follow-up with her primary doctor. Return if he developed new or worsening symptoms. Disposition: 01 DISCHARGE HOME Condition: Stable Malika Quijano Dec 12, 2017 19:32
== END 2017-12-12 19:50 | disposition home or self-care (01) ==
LOC: PHEFT 18:10
DX: S09.90XA Unspecified injury of head, initial encounter (principal); F17.200 Nicotine dependence, unspecified, uncomplicated; W01.190A Fall on same level from slipping, tripping and stumbling with subsequent striking against furniture, initial encounter
CPT/HCPCS: 70450; 99283